=== PATIENT | female | born 1965 | race Caucasian/White ===

== ENCOUNTER 2018-09-15 11:35 | Outpatient (CLI) | payer OTHER ==
--- NOTE | 2018-09-15 13:30 | RAD ---
PA AND LATERAL CHEST: History: Bronchitis. FINDINGS/IMPRESSION: Comparison is made with exam of 08-13-13. The heart size is normal. The lungs are well expanded. There is increased density in the right infrah ilar region. No pneumothoraces or pleural effusions are seen. There are degenerative changes in the s pine. The possibility of mass in the right infrahilar region cannot be excluded. Further evaluation with co ntrast enhanced CT scan is recommended. Code T POS: [facility]
== END 2018-09-15 11:36 | disposition home or self-care (01) ==
LOC: BICRAD 11:35
PROVIDERS: ATTEND Physician Assistant
DX: J40 Bronchitis, not specified as acute or chronic (principal); J98.4 Other disorders of lung; M47.9 Spondylosis, unspecified
CPT/HCPCS: 71046

== ENCOUNTER 2018-10-19 13:59 | Outpatient (CLI) | payer OTHER ==
--- NOTE | 2018-10-19 15:03 | RAD ---
LEFT SHOULDER THREE VIEWS: HISTORY: Pain. COMPARISON: None. FINDINGS: There is no acute fracture or malalignment. Mild degenerative changes in the acromioclavicular joint . No elevation of the distal clavicle. There are enthesopathic changes of the acromion, at the deltoid origin. IMPRESSION: Mild degenerative changes. POS: [facility]
== END 2018-10-19 14:00 | disposition home or self-care (01) ==
LOC: BICRAD 13:59
PROVIDERS: ATTEND Physician Assistant
DX: M25.512 Pain in left shoulder (principal); M19.012 Primary osteoarthritis, left shoulder

== ENCOUNTER 2018-10-26 14:06 | Outpatient (CLI) | payer OTHER ==
--- NOTE | 2018-10-26 15:22 | CT ---
CT OF CHEST PERFORMED WITHOUT CONTRAST ENHANCEMENT: HISTORY: Abnormal right infrahilar density noted on a recent chest x-ray. COMPARISON: A 09/15/2018 study. FINDINGS: The patient refused IV contrast due to a previous anaphylactic reaction. Lungs are clear of any confluent infiltrative process. There is some somewhat plate-like parenchymal changes along the right heart border in the right middle lobe. This could represent some chronic at electatic changes. This does not have a mass-like appearance. It may have accounted for the density on the previous chest x-ray but is no concerning for malignancy. No pleural effusions are seen. Th oracic aorta appears normal in caliber. I do not appreciate any significant mediastinal or hilar beny nopathy on this noncontrast exam. Visualized liver parenchyma shows no focal findings. IMPRESSION: Some very mild parenchymal change along the right heart border. This probably accounts for the densi ty seen on the previous chest x-ray and appears to represent some scarring. POS: [facility]
== END 2018-10-26 14:07 | disposition home or self-care (01) ==
LOC: SCSCT 14:06
PROVIDERS: ATTEND Physician Assistant
DX: R91.8 Other nonspecific abnormal finding of lung field (principal); J98.4 Other disorders of lung
CPT/HCPCS: 71250

== ENCOUNTER 2018-11-01 15:57 | Outpatient (CLI) | payer OTHER ==
--- NOTE | 2018-11-01 17:14 | MRI ---
MRI Upper Ext Jt Lt WO Con History: [N [id number] acute pain of left shoulder] Comparison: Shoulder radiographs October 19, 2018 Findings: Biceps tendon: Biceps tendon is intact. There is moderate extra-articular tenosynovial flui d. Mild intracuticular tendinosis. Labrum: There is scarring of the anterior inferior labrum with a thickened anterior band inferior gle nohumeral ligament. There is synovitis within the axillary pouch. Rotator cuff: There is a high-grade undersurface partial tearing of the supraspinatus tendon which is medial to the rotator cuff cable and involve 50-60% of the thickness of the rotator cuff. This has a transverse dimension of 14 mm and involves the entire supraspinatus tendon. There is fluid tracking along the supraspinatus myotendinous junction. The subscapularis is intact. Intrasinus tendon is intact. Bones: No fracture. No malalignment. No stress edema. Muscles: Muscle bulk is normal. Soft tissues: Small subacromial/subdeltoid bursa effusion. Moderate joint effusion. Impression: 1. High-grade undersurface tear of the supraspinatus tendon for a transverse width of 1.5 cm just med ial to the rotator cable. The footprint is intact and there is myotendinous extension of joint fluid. 2. Low-grade bursal surface tear of the anterior 4 mm process tendon from the footprint. 3. Abnormal debris throughout the joint which may reflect resolving hematoma. Aspiration may be benef icial. 4. Abnormal thickening anterior band inferior glenohumeral ligament which may reflect healing tear. 5. Superior labral tear interim posterior to the biceps labral anchor. 6. Moderate intra-articular tendinosis of the supraspinatus tendon.
== END 2018-11-01 15:58 | disposition home or self-care (01) ==
LOC: SCSMRI 15:57
PROVIDERS: ATTEND Orthopaedic Surgery
DX: M25.512 Pain in left shoulder (principal); M75.102 Unspecified rotator cuff tear or rupture of left shoulder, not specified as traumatic; S46.812A Strain of other muscles, fascia and tendons at shoulder and upper arm level, left arm, initial encounter; S43.492D Other sprain of left shoulder joint, subsequent encounter; M75.82 Other shoulder lesions, left shoulder

== ENCOUNTER 2018-12-23 16:03 | Outpatient (CLI) | payer OTHER ==
--- NOTE | 2018-12-23 16:40 | MMO ---
Bilateral MAMMO Bilat Screen [facility]. CLINICAL HISTORY: Patient is 53 years old and is seen for screening. The patient has no family history of breast cancer. The patient has no personal history of cancer. VIEWS: The views performed were: bilateral craniocaudal with tomosynthesis and bilateral mediolateral oblique with tomosynthesis. FILMS COMPARED: The present examination has been compared to prior imaging studies performed at [facility] on 01/11/2009, 06/18/2015 and 03/27/2017. MAMMOGRAM FINDINGS: There are scattered fibroglandular densities. Benign calcifications are noted bilaterally. There are no suspicious masses, suspicious calcifications, or new areas of architectural distortion. IMPRESSION: THERE IS NO MAMMOGRAPHIC EVIDENCE OF MALIGNANCY. A ROUTINE FOLLOW-UP MAMMOGRAM IN 1 YEAR IS RECOMMENDED. THE RESULTS OF THIS EXAM WERE SENT TO THE PATIENT. ACR BI-RADS Category 2 - Benign finding MAMMOGRAPHY NOTE: 1. A negative mammogram report should not delay a biopsy if a dominant of clinically suspicious mass is present. 2. Approximately 10% to 15% of breast cancers are not detected by mammography. 3. Adenosis and dense breasts may obscure an underlying neoplasm.
== END 2018-12-23 16:04 | disposition home or self-care (01) ==
LOC: BICMAMMO 16:03
PROVIDERS: ATTEND Physician Assistant
DX: Z12.31 Encounter for screening mammogram for malignant neoplasm of breast (principal)
CPT/HCPCS: 77063; 77067

== ENCOUNTER 2019-08-19 15:07 | Outpatient (CLI) | payer OTHER ==
--- NOTE | 2019-08-19 15:46 | BD ---
Exam: DEXA Bone Density 08/19/19 COMPARISON: None. HISTORY: Postmenopausal female undergoing screening for osteoporosis. Lumbar Spine: BMD (g/cm2) T-SCORE L1 1.075 0.8 L2 1.114 0.8 L3 1.130 0.4 L4 1.117 0.5 L1-L4 1.111 0.6 Femoral Neck: 0.855 0.1 Total Femur: 0.986 0.4 FRAX-WHO fracture risk assessment tool is not reported as T-Scores are all at or above -1.0. Impression: Normal DEXA bone density scan. Transcribed Date/Time: 08/19/2019 4:13 PM
== END 2019-08-19 15:08 | disposition home or self-care (01) ==
LOC: BICMAMMO 15:07
PROVIDERS: ATTEND Obstetrics & Gynecology
DX: Z13.820 Encounter for screening for osteoporosis (principal)
CPT/HCPCS: 77080

== ENCOUNTER 2020-03-28 12:00 | Outpatient (CLI) | payer OTHER ==
--- NOTE | 2020-03-28 12:34 | MMO ---
Bilateral MAMMO Bilat Screen [facility]. CLINICAL HISTORY: Patient is 54 years old and is seen for screening. The patient has no family history of breast cancer. The patient has no personal history of cancer. VIEWS: The views performed were: bilateral craniocaudal with tomosynthesis and bilateral mediolateral oblique with tomosynthesis. FILMS COMPARED: The present examination has been compared to prior imaging studies performed at [facility] on 01/11/2009, 06/18/2015, 03/27/2017 and 12/23/2018. This study has been interpreted with the assistance of computer-aided detection. MAMMOGRAM FINDINGS: There are scattered fibroglandular densities. There are no suspicious masses, suspicious calcifications, or new areas of architectural distortion. IMPRESSION: THERE IS NO MAMMOGRAPHIC EVIDENCE OF MALIGNANCY. A ROUTINE FOLLOW-UP MAMMOGRAM IN 1 YEAR IS RECOMMENDED. THE RESULTS OF THIS EXAM WERE SENT TO THE PATIENT. ACR BI-RADS Category 1 - Negative MAMMOGRAPHY NOTE: 1. A negative mammogram report should not delay a biopsy if a dominant of clinically suspicious mass is present. 2. Approximately 10% to 15% of breast cancers are not detected by mammography. 3. Adenosis and dense breasts may obscure an underlying neoplasm. Reported by: RANGEL CORLEY MD Electonically Signed: [id number]
== END 2020-03-28 12:01 | disposition home or self-care (01) ==
LOC: BICMAMMO 12:00
PROVIDERS: ATTEND Physician Assistant
DX: Z12.31 Encounter for screening mammogram for malignant neoplasm of breast (principal)
CPT/HCPCS: 77063; 77067

== ENCOUNTER 2020-09-04 14:26 | Outpatient (CLI) | payer OTHER | END 2020-09-04 14:27 | disposition home or self-care (01) | LOC: BICRAD 14:26 | PROVIDERS: ATTEND Physician Assistant | DX: J44.1 Chronic obstructive pulmonary disease with (acute) exacerbation (principal); R06.2 Wheezing | CPT/HCPCS: 71046 ==